=== PATIENT | female | born 1955 | race Caucasian/White ===

== ENCOUNTER 2017-06-15 21:59 | Inpatient (IN) | payer OTHER ==
[~2017-06-15] VITALS: Ht 167.6 cm; Wt 73.8 kg
[2017-06-15] MEDS ORDERED: MONT4GRA PO (22:39)
[2017-06-15] MEDS ORDERED: ALBU8.5H8 INH (22:39)
[2017-06-15] MEDS ORDERED: ALBUTEROL 0.5%, 20ML NPPB SCH (23:30)
[2017-06-15 23:45] LABS: BASOPHILS # (AUTO) 0.03 x10^3/uL (0-0.1); BASOPHILS % (AUTO) 0 % (0-1); EOSINOPHILS # (AUTO) 0.16 x10^3/uL (0-0.4); EOSINOPHILS % (AUTO) 2 % (1-7); LYMPHOCYTES # (AUTO) 0.78 x10^3/uL (1-3.4); LYMPHOCYTES % (AUTO) 8 % (22-44); MD NO; MEAN CORPUSCULAR HEMOGLOBIN 27.6 pg (27.0-34.8); MEAN CORPUSCULAR HGB CONC 32.8 g/dL (32.4-35.8); MEAN PLATELET VOLUME 7.5 fL (7.4-10.4); MONOCYTES # (AUTO) 0.47 x10^3/uL (0.2-0.8); MONOCYTES % (AUTO) 5 % (2-9); NEUTROPHILS # (AUTO) 7.91 x10^3/uL (1.8-6.8); NEUTROPHILS % (AUTO) 85 % (42-75); PLATELET COUNT 316 x10^3/uL (130-400); RED BLOOD COUNT 4.79 x10^6/uL (3.82-5.3); RED CELL DISTRIBUTION WIDTH 15.3 % (9.6-15.2)
[2017-06-15] MEDS ORDERED: ALBUTEROL 0.5%, 20ML ONE (23:48)
[2017-06-15 23:54] LABS: ALBUMIN 3.5 g/dL (3.4-5.0); ANION GAP 8 mmol/L (5-15); CALCIUM 8.7 mg/dL (8.5-10.1); CHLORIDE 108 mmol/L (98-107); CREATININE 0.63 mg/dL (0.55-1.02)
[2017-06-15 23:57] LABS: TROPONIN I < 0.015 ng/mL (0.000-0.045)
[2017-06-16] MEDS ORDERED: SODIUM CHLORIDE 0.9% 1,000 ML IV ONE (01:09)
[2017-06-16] MEDS ORDERED: AZITHROMYCIN 500 MG in SODIUM CHLORIDE 0.9% 250 ML IV ONE (01:30)
[2017-06-16] MEDS ORDERED: ONDANSETRON 2MG/ML, 2ML IVPush PRN (01:30)
[2017-06-16 03:34] VITALS: BP 91/47
[2017-06-16] MEDS ORDERED: TRAM50TA2 PO (06:05)
[2017-06-16] MEDS: ALBUTEROL SULFATE 2.5 MG/3 ML NPPB SCH ×5 (07:35→23:54)
[2017-06-16] MEDS ORDERED: GUAIFENESIN/DM 200-20MG, 10ML UDC PO PRN (08:00)
[2017-06-16 08:10] VITALS: BP 98/57
[2017-06-16] MEDS: AZITHROMYCIN 500 MG TABLET PO SCH (08:14)
[2017-06-16] MEDS: SODIUM CHLORIDE 0.9% 1,000 ML IV SCH ×2 (08:15→20:21)
[2017-06-16] MEDS: ENOXAPARIN 40 MG/0.4 ML SQ SCH (08:15)
[2017-06-16] MEDS: MONTELUKAST 4 MG TAB.CHEW PO SCH (08:49)
[2017-06-16 16:20] VITALS: BP 93/48
[2017-06-16] MEDS: ACETAMINOPHEN 325 MG TABLET PO PRN ×2 (18:50→23:48)
[2017-06-16 20:31] VITALS: BP 94/47
[2017-06-17 03:33] VITALS: BP 92/53
[2017-06-17] MEDS: SODIUM CHLORIDE 0.9% 1,000 ML IV SCH (05:58)
[2017-06-17 07:15] VITALS: BP 96/62
[2017-06-17] MEDS: ALBUTEROL SULFATE 2.5 MG/3 ML NPPB SCH ×4 (07:51→18:45)
[2017-06-17] MEDS: AZITHROMYCIN 500 MG TABLET PO SCH (08:02)
[2017-06-17] MEDS: MONTELUKAST 4 MG TAB.CHEW PO SCH (08:02)
[2017-06-17] MEDS: ENOXAPARIN 40 MG/0.4 ML SQ SCH (08:02)
[2017-06-17] MEDS: FLUTICASONE/VILANTEROL 200-25MCG/INH INH SCH (08:03)
[2017-06-17] MEDS ORDERED: PNEUMOCOCCAL 23 VACCINE IM-VACC ONE (10:00)
[2017-06-17 12:35] VITALS: BP 107/68
[2017-06-17] MEDS ORDERED: FLUT1BLS INH (13:17)
[2017-06-17] MEDS ORDERED: AZIT500T5 PO (13:17)
[2017-06-17] MEDS ORDERED: GUAI5SYR PO (13:17)
[2017-06-17] MEDS ORDERED: PRED20TA PO (13:17)
[2017-06-17] MEDS ORDERED: ALBU2.5V NPPB (13:17)
[2017-06-17] MEDS ORDERED: ALBUTEROL/IPRATROPIUM 2.5MG/0.5MG, 3 ML ONE (17:09)
[2017-06-17] MEDS ORDERED: ALBUTEROL/IPRATROPIUM 2.5MG/0.5MG, 3 ML NPPB PRN (17:30)
[2017-06-17 19:36] VITALS: BP 102/57
[2017-06-17] MEDS: ACETAMINOPHEN 325 MG TABLET PO PRN (21:34)
[2017-06-18 00:55] VITALS: BP 95/52
[2017-06-18] MEDS: ALBUTEROL SULFATE 2.5 MG/3 ML NPPB SCH ×2 (07:00→11:00)
[2017-06-18 07:32] VITALS: BP 104/50
[2017-06-18] MEDS: MONTELUKAST 4 MG TAB.CHEW PO SCH (08:32)
[2017-06-18] MEDS: ENOXAPARIN 40 MG/0.4 ML SQ SCH (08:32)
[2017-06-18] MEDS: AZITHROMYCIN 500 MG TABLET PO SCH (08:32)
[2017-06-18] MEDS: FLUTICASONE/VILANTEROL 200-25MCG/INH INH SCH (08:32)
== END 2017-06-18 11:59 | disposition home or self-care (01) | DRG 193 ==
LOC: ED 23:23 → EDIP 06-16 01:10 → 4WST 06-16 03:04 → DCLOUNGE 06-18 11:46
PROVIDERS: ADMIT Surgery; ATTEND Internal Medicine
DX: J18.1 Lobar pneumonia, unspecified organism (principal); J96.00 Acute respiratory failure, unspecified whether with hypoxia or hypercapnia; J45.901 Unspecified asthma with (acute) exacerbation
CPT/HCPCS: 36415; 71010; 80048; 82040; 83605; 83880; 84484; 85025; 90732; 93005; 93306; 94640; 94644; J0456; J1650; J7613; J7620; J7030; J7050; J7512